=== PATIENT | male | born 1945 | race Caucasian/White ===

== ENCOUNTER 2020-09-10 10:13 | Day surgery (SDC) | payer OTHER ==
[~2020-09-10] VITALS: Ht 180.3 cm; Wt 85.4 kg
[~2020-09-10 10:13] MED LIST: ATEN25 PO; GLIP2.5ER PO; MULTI-VITAMIN1 EAC2 PO; OLME20 PO
[2020-09-10] MEDS ORDERED: OLME5TAB (10:38)
== END 2020-09-10 13:00 | disposition home or self-care (01) ==
LOC: ORSCSDS 10:13
PROVIDERS: Internal Medicine Gastroenterology
PROC: 0DBH8ZX Excision of Cecum, Via Natural or Artificial Opening Endoscopic, Diagnostic (ICD-10-PCS; principal; 2020-09-10 11:30)
PROC: 0DBM8ZX Excision of Descending Colon, Via Natural or Artificial Opening Endoscopic, Diagnostic (ICD-10-PCS; principal; 2020-09-10 11:30)
DX: Z12.11 Encounter for screening for malignant neoplasm of colon (principal); D12.0 Benign neoplasm of cecum; D12.4 Benign neoplasm of descending colon; K57.30 Diverticulosis of large intestine without perforation or abscess without bleeding; K64.8 Other hemorrhoids; Z86.010 Personal history of colon polyps; Z80.0 Family history of malignant neoplasm of digestive organs; I10 Essential (primary) hypertension; E11.9 Type 2 diabetes mellitus without complications; Z79.84 Long term (current) use of oral hypoglycemic drugs; Z79.899 Other long term (current) drug therapy
CPT/HCPCS: 82947; 88305; J2704; J7120

== ENCOUNTER 2023-06-21 13:11 | Day surgery (SDC) | payer OTHER ==
[~2023-06-21] VITALS: Ht 180.3 cm; Wt 97.9 kg
[~2023-06-21 13:11] MED LIST changes: +OLME5TAB
[2023-06-21] MEDS ORDERED: JARDIANCE10 MG PO (13:42)
[2023-06-21] MEDS ORDERED: AMLO5 PO (13:42)
[2023-06-21] MEDS ORDERED: TELM20 PO (13:44)
--- NOTE | 2023-06-21 13:49 | NUR ---
06/21/23 1349 Dyllan Gil CALL LIGHT WITHIN REACH. TETRACAINE IN LEFT EYE AT 1342 AND PLEDGETT IN AT 1345
[2023-06-21 14:53] VITALS: BP 145/81
== END 2023-06-21 15:06 | disposition home or self-care (01) ==
LOC: ORSCSDS 13:11
PROVIDERS: Ophthalmology
PROC: 08RK3JZ Replacement of Left Lens with Synthetic Substitute, Percutaneous Approach (ICD-10-PCS; principal; 2023-06-21 14:30)
DX: E11.36 Type 2 diabetes mellitus with diabetic cataract (principal); H25.13 Age-related nuclear cataract, bilateral; H52.202 Unspecified astigmatism, left eye; I10 Essential (primary) hypertension; K21.9 Gastro-esophageal reflux disease without esophagitis; Z79.84 Long term (current) use of oral hypoglycemic drugs; Z79.899 Other long term (current) drug therapy
CPT/HCPCS: 82947; J2250; J3010; J3301; J7040; V2632

== ENCOUNTER 2023-06-28 15:10 | Day surgery (SDC) | payer OTHER ==
[~2023-06-28] VITALS: Ht 180.3 cm; Wt 79.7 kg
[~2023-06-28 15:10] MED LIST changes: +AMLO5 PO; +JARDIANCE10 MG PO; +TELM20 PO
[2023-06-28 17:07] VITALS: BP 142/83
== END 2023-06-28 17:24 | disposition home or self-care (01) ==
LOC: ORSCSDS 15:10
PROVIDERS: Ophthalmology
PROC: 08RJ3JZ Replacement of Right Lens with Synthetic Substitute, Percutaneous Approach (ICD-10-PCS; principal; 2023-06-28 16:30)
DX: H25.11 Age-related nuclear cataract, right eye (principal); Z96.1 Presence of intraocular lens; H52.201 Unspecified astigmatism, right eye; I10 Essential (primary) hypertension; K21.9 Gastro-esophageal reflux disease without esophagitis; Z79.899 Other long term (current) drug therapy
CPT/HCPCS: 82947; J2250; J3010; J3301; J7040; V2632